=== PATIENT | female | born 1995 | race Caucasian/White ===

== ENCOUNTER 2024-11-21 08:00 | Emergency (ER) | payer BC, SELFPAY ==
--- OUTSIDE RECORDS SUMMARY | 2024-11-21 08:04 | XMS_ITS ---
Author Organization Unknown Address [address] [place] [phone] Phone Care Team Providers Care Customer Advisor Specialist Name Role Phone MARY GOLD Attending Unavailable NO PCP Primary Unavailable Immunization Immunization Date Status Additional Notes Code Code System OPV 06/30/1998 Completed 02 CVX MMR 06/30/1998 Completed 03 CVX MMR 04/03/2002 Completed 03 CVX IPV 1997 Completed 10 CVX IPV 1997 Completed 10 CVX IPV 04/03/2002 Completed 10 CVX influenza, split (incl. purified surface antigen) 05/26/2009 Completed 15 CV X DTaP 1997 Completed 20 CVX DTaP 1997 Completed 20 CVX DTaP 1997 Completed 20 CVX DTaP 06/30/1998 Completed 20 CVX DTaP 04/03/2002 Completed 20 CVX varicella 04/03/2002 Completed 21 CVX varicella 02/16/2012 Completed 21 CVX Hib-Hep B 1997 Completed 51 CVX Hib-Hep B 1997 Completed 51 CVX Hib-Hep B 06/30/1998 Completed 51 CVX Hep A, ped/adol, 2 dose 02/16/2012 Completed 83 CVX Hep A, ped/adol, 2 dose 01/01/2015 Completed 83 CVX meningococcal MCV4P 01/01/2015 Completed 114 CVX Tdap 02/16/2012 Completed 115 CVX meningococcal, unknown serogroups 02/16/2012 Completed 167 CVX Results BETA HCG-QUANT - Collect Trey e/Time: 02/15/2024 23:18 [facility] ID: [id number] [address] [place], [place], [phone] LOINC: Test Value Unit Reference Range Code Code System Flag BETA HCG-QUANT 7816.50 mIU/mL L=0.00 H=6.00 LOINC H CBC W/ DIFF - Collect Date/T piotr: 02/15/2024 23:18 [facility] ID: [id number] [address] [place], [place], [phone] LOINC: 52944-3 Test Value Unit Reference Range Code Code System Flag WBC 8.6 10^3uL L=4.8 H=10.8 RBC 3.59 10^6uL L=4.20 H=5.40 L HEMOGLOBIN 11.2 g/dL L=12.0 H=16.0 718-7 LOINC L HEMATOCRIT 33.4 VOL% L=37.0 H=47.0 4544-3 LOINC L MCV 93.0 fL L=81.0 H=99.0 MCH 31.2 pg L=27.0 H=32.0 MCHC 33.5 g/dL L=32.0 H=36.0 PLATELETS 218 10^3uL L=100 H=400 94344-8 LOINC RDW 12.9 % L=11.7 H=15.5 %GRAN 61.8 % L=40.0 H=70.0 72698-8 LOINC %LYMPH 27.2 % L=20.0 H=45.0 736-9 LOINC %MONO 9.9 % L=2.0 H=10.0 66782-1 LOINC %EOS 0.5 % L=0.0 H=6.0 713-8 LOINC %BASO 0.3 % L=0.0 H=3.0 706-2 LOINC #NEUT 5.3 10^3uL L=1.9 H=7.6 79642-2 LOINC #LYMPH 2.3 10^3uL L=0.9 H=4.9 05074-1 LOINC #MONO 0.9 10^3uL L=0.1 H=0.9 52225-5 LOINC #EOS 0.0 10^3uL L=0.0 H=0.6 712-0 LOINC #BASO 0.03 10^3uL L=0.00 H=0.10 03997-1 LOINC #IM GRANS 0.0 10^3uL L=0.0 H=7.0 04349-0 LOINC %IM GRANS 0.3 % L=0.0 H=5.0 18856-8 LOINC %NRB 0.0 L=0.0 H=0.2 40218-7 LOINC #NRB 0.000 L=0.000 H=0.012 61024-1 LOINC MANUAL DIFF NOT INDICATED RBC MORPH NOT INDICATED COMPREHENSIVE METABOLIC PANE L - Collect Date/Time: 02/15/2024 23:18 [facility] ID: [id number] [address] [place], [place], [phone] LOINC: 31940-2 Test Value Unit Reference Range Code Code System Flag FASTING UNKNOWN BUN 13 mg/dL L=7 H=20 3094-0 LOINC CREATININE 0.70 mg/dL L=0.52 H=1.04 2160-0 LOINC GLUCOSE 72 mg/dL L=74 H=106 2345-7 LOINC L SODIUM 135 mmol/L L=132 H=144 2951-2 LOINC POTASSIUM 3.1 mmol/L L=3.5 H=5.1 2823-3 LOINC L CHLORIDE 101 mmol/L L=98 H=107 2075-0 LOINC CO2 27.0 mmol/L L=22.0 H=30.0 2028-9 LOINC ANION GAP 10 L=10 H=20 01285-5 LOINC OSMOLALITY 279 mOs/kG L=280 H=296 40817-6 LOINC L BUN/CREAT 18.6 3097-3 LOINC CALCIUM 9.3 mg/dL L=8.3 H=10.5 85349-2 LOINC AST 26 U/L L=15 H=46 1920-8 LOINC ALT 17 U/L L=9 H=72 1742-6 LOINC ALKALINE PHOS 47 U/L L=38 H=126 6768-6 LOINC TOTAL BILI 0.2 mg/dL L=0.2 H=1.3 1974-2 LOINC ALBUMIN 4.0 G/dL L=3.5 H=5.0 1751-7 LOINC TOTAL PROTEIN 7.1 g/L L=6.3 H=8.2 2885-2 LOINC A/G RATIO 1.3 90544-8 LOINC AGE 28 17510-1 LOINC eGFR NON-AFR 108 ml/min eGFR AFR AMER 131 ml/min LIPASE - Collect Date/Time: 02/15/2024 23:18 [facility] ID: [id number] [address] [place] [address], [phone] LOINC: 3040-3 Test Value Unit Reference Range Code Code System Flag LIPASE 256 U/L L=23 H=300 3040-3 LOINC PROTIME - Collect Date/Time: 02/15/2024 23:18 [facility] ID: [id number] [address] [place] [address], [id number] LOINC: 31367-6 Test Value Unit Reference Range Code Code System Flag PT 9.9 Sec L=9.7 H=11.7 60046-2 LOINC INR 0.9 Sec L=0.9 H=1.1 74655-0 LOINC PTT - Collect Date/Time: 23:18 [facility] ID: [id number] [address] [place] [address], [id number] LOINC: 83316-3 Test Value Unit Reference Range Code Code System Flag PTT 24.4 Sec L=23.0 H=31.2 URINALYSIS w/Microscopy/C&S if indicated - Collect Date/Time: 02/15/2024 23:18 [facility] ID: [id number] [address] [place] [address], [phone] LOINC: 75354-8 Test Value Unit Reference Range Code Code System Flag UR SOURCE CLEAN CATCH 21596-5 LOINC COLOR STRAW YELLOW 5778-6 LOINC CLARITY CLEAR CLEAR 90771-1 LOINC SPEC GRAVITY <=1.005 1.000-1.030 5811-5 LOINC PH 7.0 5.0 - 6.5 5803-2 LOINC LEUK EST NEGATIVE NEGATIVE 5799-2 LOINC NITRATE NEGATIVE NEGATIVE PROTEIN NEGATIVE NEGATIVE 5804-0 LOINC GLUCOSE NEGATIVE NEGATIVE 65682-4 LOINC KETONES NEGATIVE NEGATIVE 52554-2 LOINC UROBILINOGEN 0.2EU/dL NEGATIVE 5818-0 LOINC BILIRUBIN NEGATIVE NEGATIVE 11017-7 LOINC BLOOD NEGATIVE NEGATIVE 63582-6 LOINC WBC 0-2 0 - 2 29874-8 LOINC RBC 0-2 0 - 2 89272-0 LOINC EPITHELIAL OCCASIONA RARE-FEW 42051-6 LOINC BACTERIA FEW NONE SEEN 71151-5 LOINC MUCUS FEW NONE SEEN 8247-9 LOINC YEAST NOT PRESENT NOT PRESENT 02561-9 LOINC CASTS NONE SEEN 36475-3 LOINC CRYSTALS NONE SEEN 35595-8 LOINC CULTURE? NO 8251-1 LOINC DIAGNOSIS N/A US OB LIMITED - Completed: 0 02/16/2024 04:08 LOINC: EXAM DESCRIPTION: US OB LIMITED REASON FOR STUDY: PT STATES SHE STARTED EXPERIENCING RT SIDED CRAMPING TODAY. A1. EDC=06/11/24 Duration: X 1 TECHNIQUE: Transabdominal and transvaginal images acquired of the pelvis. COMPARISON: None FINDINGS: There is single live intrauterine gestation noted in breech presentation with documentation of cardiac activity at 144 beats per minute. There is an anterior placenta, grade 1, without evidence of previa. The cervix measures 3.9 cm in length transvaginally. IMPRESSION: 1. Single live intrauterine gestation in breech presentation with documentation of cardiac activity at 144 beats per minute. Routine follow-up anatomy scan is recommended as clinically indicated. THIS IS AN ELECTRONICALLY VERIFIED FINAL REPORT 02/16/2024 9:01 AM - Electronically signed by Rama Espino D.O. PS: RUDDY Report ID: [id number] Reading Location: [id number] Social History Type Status Start Date End Date Code Code Syst em Sex Female Hospital Discharge Instructions Should you have any questions prior to discharge, please contact a member of your healthcare team. If you have left the hospital and have any questions, please contact your primary care physician. Reason For Referral No Data Found Plan of Treatment No Data Found Encounters Encounter Diagnosis Start Date Code Code Sys tem Endocrine, nutritional and m etabolic diseases complicating , second trimester 02/15/2024 SNOMED-CT Personal Care Team Section Performer Name Performer Role Active Date Inactive Da te Imaging Narrative Notes
[2024-11-21 08:05] VITALS: BP 132/83; PULSE 104; RESP 18; TEMP 37.3; O2SAT 98
--- OUTSIDE RECORDS SUMMARY | 2024-11-21 08:05 | XMS_ITS | Encounter Summary ---
Author Organization [facility] Address [address] [place] [address] Care Team Providers Care Wireless Network Engineer Name Role Phone Jatin Chavez MD Primary Care Provider [phone] Mariano Prakash MD Primary Care Provider [phone] Brianne Buckner MD Primary Care Provider [phone] Bisi Abad MD Primary Care Provider [phone] Encounter Details Date Type Department Care Team (Late st Contact Info) Description 01/05/2019 Abstract SFL CONVERSION [address] [place] [address] , Generic ConversionMD Social History Tobacco Use Types Packs/Day Years Used Date Smoking Tobacco: Never Assessed Comments Unknown Sex and Gender Information Value Date Recorded Sex Assigned at Female 10/12/2024 9:03 AM CDT Legal Sex Female 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 PM SILO TENDER Gender Identity Not on file Sexual Orientation Not on file documented as of this encounter Plan of Treatment Not on file documented as of this encounter Visit Diagnoses Not on filedocumented in this encounter Additional Health Concerns Infection Onset Date Last Indicated Resolved Time COVID-19 Rule Out 04/09/2021 04/09/2021 04/09/2021 10:01 PM CDT documented as of this encounter Care Teams Wireless Network Engineer Relationship Specialty Start Date End Date Jatin Chavez MD [address] [place] [id number] PCP - General FAMILY PRACTICE 03/20/19 09/04/20 Mariano Prakash MD [address] [place] [address] PCP - General FAMILY PRACTICE 09/05/20 10/19/23 Brianne Buckner MD [address] [place] [address] PCP - General FAMILY PRACTICE 10/20/23 05/26/24 Bisi Abad MD [address] [place] [address] PCP - General FAMILY PRACTICE 05/27/24 documented as of this encounter
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
--- OUTSIDE RECORDS SUMMARY | 2024-11-21 08:05 | XMS_ITS ---
Author Organization Unknown Address [address] [place] [phone] Phone Care Team Providers Care Cafeteria Cashier Name Role Phone CARMEN Sumner Attending Unavailable Immunization Immunization Date Status Additional Notes [...] unknown serogroups 02/16/2012 Completed 167 CVX Results US OB LIMITED - Completed: 0 01/22/2024 13:05 LOINC: EXAM DESCRIPTION: US OB LIMITED; US TRANSVAGINAL OB REASON FOR STUDY: Patient fell down 5 stairs yesterday. Mild cramping for 1 day. TECHNIQUE: Multiple static transabdominal and transvaginal images of the pelvis were submitted for review. COMPARISON: None FINDINGS: Gestational age estimated by this US: 20 weeks 1 day EDC estimated by this US: 06/09/2024 EFW estimated by this US: 329 g EFW is at the 57% based upon the provided EDC or prior US if available. Placenta is located: Anterior, grade 0. The placental tip measures 3.0 cm from the cervical os. position: Cephalic heart rate: 155 The cervix measures 4.6 cm in length transvaginally. MEASUREMENTS: The measurements and ratios are within normal limits. IMPRESSION: 1. Single live intrauterine gestation identified with gestational age by this ultrasound of 20 weeks 1 day and EDC by this ultrasound is 06/09/2024. Routine follow-up anatomy scan is recommended as clinically indicated. 2. Low lying placenta with placental tip measuring 3.0 cm from the cervical os. Continued attention on the aforementioned follow-up anatomy scan is recommended as clinically indicated. THIS IS AN ELECTRONICALLY VERIFIED FINAL REPORT 01/22/2024 1:14 PM - Electronically signed by Rama Espino D.O. PS: PS Report ID: [id number] Reading Location: [id number] US TRANSVAGINAL OB - Complet ed: 01/22/2024 13:05 LOINC: EXAM DESCRIPTION: US OB LIMITED; US TRANSVAGINAL OB REASON FOR STUDY: Patient fell down 5 stairs yesterday. Mild cramping for 1 day. TECHNIQUE: Multiple static transabdominal and transvaginal images of the pelvis were submitted for review. COMPARISON: None FINDINGS: Gestational age estimated by this US: 20 weeks 1 day EDC estimated by this US: 06/09/2024 EFW estimated by this US: 329 g EFW is at the 57% based upon the provided EDC or prior US if available. Placenta is located: Anterior, grade 0. The placental tip measures 3.0 cm from the cervical os. position: Cephalic heart rate: 155 The cervix measures 4.6 cm in length transvaginally. MEASUREMENTS: The measurements and ratios are within normal limits. IMPRESSION: 1. Single live intrauterine gestation identified with gestational age by this ultrasound of 20 weeks 1 day and EDC by this ultrasound is 06/09/2024. Routine follow-up anatomy scan is recommended as clinically indicated. 2. Low lying placenta with placental tip measuring 3.0 cm from the cervical os. Continued attention on the aforementioned follow-up anatomy scan is recommended as clinically indicated. THIS IS AN ELECTRONICALLY VERIFIED FINAL REPORT 01/22/2024 1:14 PM - Electronically signed by Rama Espino D.O. PS: PS Report ID: [id number] Reading Location: [id number] Social History Type Status Start Date End [...] Diagnosis Start Date Code Code Sys tem Sprain of ligaments of lumbar spine, initial encounter 01/22/2024 SNOMED-CT Personal Care Team Section Performer Name Performer Role Active Date Inactive Da te Imaging Narrative Notes
--- OUTSIDE RECORDS SUMMARY | 2024-11-21 08:05 | XMS_ITS ---
Author Organization Unknown Address [address] [place] [phone] Phone Care Team Providers Care Assistant Child Care Teacher Name Role Phone SOCORRO RANDOLPH Attending Unavailable NO PCP Primary Unavailable Immunization [...] unknown serogroups 02/16/2012 Completed 167 CVX Results 1 HR GESTATIONAL GLUCOSE SCR EEN - Collect Date/Time: 03/17/2024 09:43 [facility] ID: [id number] [address] [place], [place], [id number] LOINC: 21731-0 Test Value Unit Reference Range Code Code System Flag 1 HR GLUCOSE 113.00 mg/dL L=70.00 H=140 95648-1 [facility] Social History Type Status Start Date End [...] Diagnosis Start Date Code Code Sys tem Encounter for supervision of normal , unspecified, unspecified trimester 03/17/2024 NASIR D-CT Personal Care Team Section Performer Name Performer Role Active Date Inactive Da te
[2024-11-21 08:20] LABS: Add Urine Microscopic? NO; Appearance Urine Clear (Clear); Bilirubin Urine Negative (Negative); Blood Urine Negative (Negative); Color Urine Yellow (Yellow); Glucose Urine UA Negative (Negative); Ketones Urine Negative (Negative); Leukocyte Esterase Ur Negative LEU/UL (Negative); Nitrate Urine Negative (Negative); Protein Urine Negative (Negative); Urobilinogen Urine 0.2 mg/dL (0.2-1.0); pH Urine 6.5 (5.0-8.0)
[2024-11-21 08:29] LABS: Pregnancy On Board Control Positive; Urine Pregnancy Test Negative
--- OUTSIDE RECORDS SUMMARY | 2024-11-21 08:39 | XMS_ITS | Encounter Summary ---
Author Organization [facility] Address [address] [place] [address] Care Team Providers Care Hoist Worker Name Role Phone Jatin Chavez MD Primary Care Provider [phone] Mariano Prakash MD Primary Care Provider [phone] Brianne Buckner MD Primary Care Provider [phone] Bisi Abad MD Primary Care Provider [phone] Encounter Details Date Type Department Care Team (Late st Contact Info) Description 01/05/2019 Abstract SFL CONVERSION [address] [place] [address] , Generic ConversionMD Social History Tobacco Use Types Packs/Day Years Used Date Smoking Tobacco: Never Assessed Comments Unknown Sex and Gender Information Value Date Recorded Sex Assigned at Female 10/12/2024 9:03 AM CDT 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 Gender Identity Not on file Sexual Orientation Not on file documented as of this encounter Plan of Treatment Not on file documented as of this encounter Visit Diagnoses Not on filedocumented in this encounter Additional Health Concerns Infection Onset Date Last Indicated Resolved Time COVID-19 Rule Out 04/09/2021 04/09/2021 04/09/2021 10:01 PM CDT documented as of this encounter Care Teams Hoist Worker Relationship Specialty Start Date End Date Jatin Chavez MD [address] [place] [address] [place] [phone] PCP - General FAMILY PRACTICE 03/20/19 09/04/20 Mariano Prakash MD [address] [place] [phone] PCP - General FAMILY PRACTICE 09/05/20 10/19/23 Brianne Buckner MD [address] [place] [address] PCP - General FAMILY PRACTICE 10/20/23 05/26/24 Bisi Abad MD [address] [place] [address] PCP - General FAMILY PRACTICE 05/27/24 documented as of this encounter
--- OUTSIDE RECORDS SUMMARY | 2024-11-21 08:39 | XMS_ITS | Clinical Summary ---
Author Organization [facility] Address [facility] [place] [address] Care Team Providers Care Calciminer Name Role Phone Bisi Abad MD Primary Care Provider [phone] Allergies Active Allergy Reactions Criticality Noted Date [...] Date Diagnosed Date Premature rupture of membranes ([facility]) 024 Hypokalemia 03/24/2019 Hypoxemia 03/24/2019 Respiratory failure with hypoxia ([facility] C) 03/24/2019 ARDS (adult respiratory dist ress syndrome) ([facility]) 03/24/2019 Depression 03/23/2019 Anxiety 03/23/2019 Pneumonia 03/22/2019 Resolved Problems Problem Noted Date Diagnosed Date Resolved Date Vomiting 03/23/2019 03/24/2019 Encounters Date Type Department Care Team Description 10/12/2024 8:42 AM CDT - 10/12/2024 9:15 AM CDT Emergency [facility] [address] [place] [address] David Da Silva MD Eye Drainage Discharge [...] from your doctor or pharmacy? Never 05/23/2024 [facility] Utilities Answer Date Recorded In the past 12 months has e [employer], gas, oil, or water [employer] threatened to shut off services in your [...] often do you attend chur ch or jewish services? Never 05/23/2024 Do you belong to any clubs o r organizations such as restoration groups, unions, fraternal or athletic groups, or [...] medical care, and heating? Somewhat hard 05/23/2024 [facility] - Occupational [...] any time in the past 12 m [facility], were you homeless or living in a fdc (including now)? No 05/23/2024 Depression Answer Date Recor ded Last EPDS Total Score 13 05/26/2024 Last EPDS Self Harm Result Unrecognized value Comments No Sex and Gender Information Value Date Recorded Sex Assigned at Female 10/12/2024 9:03 AM CDT Legal Sex Female 10:24 PM [employer] Gender Identity Not on file Sexual Orientation [...] 11:21 PM 03/24/2019 2:34 PM Care Teams Calciminer Relationship Specialty Start Date End Date Bisi Abad MD [address] [id number] PCP - General FAMILY PRACTICE 05/27/24
--- OUTSIDE RECORDS SUMMARY | 2024-11-21 08:39 | XMS_ITS | Data Portability ---
Author Organization [facility], [address] [facility] ([place]) Address [address] [address] Care Team Providers Care Revenue Accounting Manager Name Role Phone DALJIT ABAD Primary Care Provider Unavailabl e Assessment Encounter Date Assessment Date Assessment LastModified by Organization Details LastModified Time 10/14/2024 10/14/2024 Likely viral URI. She is on about day 7. Overall improving. Recommended continued watchful waiting/ supportive treatment. If not improving further by the end of the week, would consider Amox for sinusitis. Patient voices understanding and agreement with the plan. [email or web address] Not available 10/14/2024 17:50:29 11/06/2024 11/06/2024 Likely a viral URI. We discussed viral testing today and she declines for now given mild symptoms, which I feel is reasonable. Recommended supportive treatment adding an OTC allergy medication. F/u if worsening symptoms or failure to improve/symptoms lasting > 7-10 days [email or web address] Not available 11/06/2024 13:02:59 Plan of Treatment Reminders Order Date Submit Date Provider Last Modified By Organization Details Last Modified Time Details Appointments None recorded. Lab CBC 2024 025 [facility], [address], [address], 14:49:25 Referral None recorded. Procedures None recorded. Surgeries None recorded. Imaging None recorded. Medication Orders venlafaxine ER 37.5 mg capsule,ext ended release 24 hr 2024 025 [facility], [employer] [facility] [address], [place], [address], 5 15:09:07 venlafaxine ER 75 mg capsule,ext ended release 24 hr 2024 025 PEDRO [facility], [address], [place], [address], 5 15:09:07 venlafaxine ER 37.5 mg capsule,ext ended release 24 hr 2024 025 PEDRO [facility], [address], [place], [place], [id number], 5 15:31:30 venlafaxine ER 75 mg capsule,ext ended release 24 hr 2024 025 PEDRO [facility], [address], [place], [place], [id number], 5 15:31:29 nicotine 14 mg/24 hr daily transdermal patch 2024 025 PEDRO [facility], [address], [place], [place], [id number], 5 15:15:06 nicotine 7 mg/24 hr daily transdermal patch 2024 025 [email or web address] [facility], [address], [place], [place], [id number], 5 14:35:17 venlafaxine ER 75 mg capsule,ext ended release 24 hr 2024 025 PEDRO [facility], [address] [id number], 5 13:10:09 Patient TargetsNo targets recorded. Patient Instructions Encounter Date Encounter Id Patient Instructions Last Modified By Organization Details Last Modified Time 08/12/2024 [id number] Follow-up as scheduled in 2-3 weeks, PRN in interim [email or web address] Not available 08/12/2024 17:54:34 09/11/2024 [id number] Venlafaxine increased today. Start Nicotine patches for smoking cessation. Return in one month for recheck. Patient reports agreement and understanding with this plan. [email or web address] Not available 09/12/2024 00:26:20 10/09/2024 [id number] Would like to se e her back in another month - wherein hopefully psychiatry will be on board. Patient reports agreement and understanding with this plan. [email or web address] Not available 10/09/2024 15:18:55 Reason for Referral None Reported. Results Created Date Observation Date Name Description Value Unit Range Abnormal Flag Note LastModifiedBy Organization Detail LastModifiedTime 08/12/1908/13/2024 CBC CBC Not Available [facility] [address] [place] [address], [address], 08/13/2024 14:49:25 08/12/1908/13/2024 CBC WBC 5.2 K/uL 3.8-11 .2 Not Available [facility] [address] [place] [address], [address], 08/13/2024 14:49:25 08/12/1908/13/2024 CBC RBC 4.48 M/uL 3.92-5 .10 Not Available [facility] [address] [place] [address], [id number], 08/13/2024 14:49:25 08/12/1908/13/2024 CBC HGB 13.1 g/dL 11.8-1 5.3 Not Available [facility] [address] [place] [address], [address], 08/13/2024 14:49:25 08/12/1908/13/2024 CBC HCT 39.9 % 36.5-4 4.8 Not Available [facility] [address] [place] [address], [address], 08/13/2024 14:49:25 08/12/1924 0808/13/2024 CBC MCV 89.1 fL 80.0-9 9.0 Not Available [facility] [address] [place] [address], [address], 08/13/2024 14:49:25 08/12/19 25 08/13/2024 CBC MCH 29.2 pg 25.5-3 3.6 Not Available [facility] [address] [place] [address], [address], 08/13/2024 14:49:25 08/12/19 25 08/13/2024 CBC MCHC 32.8 g/dL 32.0-3 6.0 Not Available [facility] [address] [place] [address], [address], 08/13/2024 14:49:25 08/12/19 25 08/13/2024 CBC RDW-SD 43.5 fL 35.1 - 46.3 Not Available [facility] [address] [place] [address], [address], 08/13/2024 14:49:25 08/12/19 25 08/13/2024 CBC plt 370 K/uL 130-40 0 Not Available [facility] [address] [place] [address], [address], 08/13/2024 14:49:25 08/12/1908/13/2024 CBC MPV 9.6 fL 9.3-12 .8 Not Available [facility] [address] [place] [address], [address], 08/13/2024 14:49:25 Result Notes None recorded. Problems Name Problem SNOMED Code Status Onset Date Resolution Date Notes Provider Name and Address Organization Details Recorded Time Group B Streptoc occus carrier [id number] [id number] Completed +screen at 36w. Plan for intrapar christo antibiot ics. Ammon Emery MD [address] [place] [address], [id number] [place] [address] 4 07:35:25 Moderate major depressi on, single episode 31885146 Active Currentl y on Fluvoxam ine, buspar, and venlafax ine. Buspar decrease d to BID from TID due to possible dizzines s- venlafax ine started 07/2024. Has had some off/on c/o visual/a uditory hallucin ations. at appt 11/06/24 pt reports improvem ent. NO further visual barriga. Auditory occasion ally but never with any intrusiv e thoughts . No suggesti ons of harming herself or others. Working on therapy referral w/ Marisela Moreira. Previous ly trialed: venlafax , clonidin e (stopped due to muscle cramps), clonazep am, trazodon e, buspar, wellbutr in, mirtaz, sertrali ne, seroquel (stopped due to faitgue with new baby) and risperid one. Also tried Abilify which made mood worse. Anisa Willis, THEATER PROJECTIONIST [address] [place] [address], [address], [facility] 5 13:07:51 Anxiety 80667765 Active 2023 See depressi on DALJIT ABAD MD [address] [place] [address], [address], [facility] 5 17:57:33 Abnormal vaginal Papanico laou smear 284030804 Active 2023 ASCUS unknown HPV 01/25/23, prior to that NILM, due for repeat pap 12/2023 DALJIT ABAD MD [address] [place], [address], [facility] 4 09:02:15 Acute respirat ory distress syndrome 13556988 Completed 202007/31/2020 vape induced lung injury, required ventilat or support DALJIT ABAD MD [address] [place], [address], [facility] 4 09:04:11 Dizzines s 111513388 Active 2024 DALJIT ABAD MD [address] [place] [address], [address], [facility] 5 13:09:05 Viral upper respirat ory tract infectio n 935418138 Active 2024 Anisa Willis, THEATER PROJECTIONIST [address] [place] [address], [address], [facility] 5 12:17:40 Marijuan a user 677133464 Completed every other day Ammon Emery MD [address] [place] [address], [address], [facility] 4 11:03:52 Blood group A 909217204 Completed prior provider flowshee t not clear on Rh Status. A+ confirme d on 32wk labs. Ammon Emery MD [address] [place] [address], [address], [facility] 4 09:58:20 Normal pregnanc y 03366308 Completed 08/12/2024 DALJIT ABAD MD [address] [place] [address], [address], [facility] 5 17:57:08 Depressi ve disorder 66659776 Completed Controll ed w/ Fluvoxam ine and Seroquel coming into (and continue d in) pregnanc y Ammon Emery MD [address] [place] [address], [address], [facility] 4 11:03:52 Abnormal ity of heart 061710834 Completed 2023 Appearan ce of bidirect ional flow in aorta on tracheal view. Normal on MFM eval at 33w where advised ok to deliver locally ( cis), but suggeste d post-silas al echo non-urge ntly. Ammon Emery MD [address] [place] [address], [address], [facility] 10:50:38 Notes:Some problems listed i n Document: #[id number] could not be added to this patient's chart. Please review this document and add these problems to the patient's chart manually as needed. Problem Notes None recorded. Procedures Surgical History Date Name Laterality Status Provider Name and Address Organization Details Recorded Time 10/27/2022 Date of Last Pap Smear completed Not Available Health Note 04/17/2024 14:02:31 Imaging Results None recorded. Procedure Notes None recorded. Medical Equipment None Reported. Allergies Allergen ID Allergen Name Allergen Category Reaction Reaction Severity Criticality Documentation Date Start Date Code Code System Note Provider Name and Address Organization Details Recorded Time 8994072 erythromy chioma medicatio n vomiting Not available Not available 01/26/2024 4053 RxNorm and sever e body pain Not Available Not Available Not Available 2662394 lavender extract food rash Not available Not available 01/26/2024 53308 67 RxNorm and tight throa t Not Available Not Available Not Available Medications Name Sig Start Date Stop Date Status Note LastModified by Organization Details LastModified Time venlafaxi ne ER 37.5 mg capsule,e xtended release 24 hr TAKE 1 CAPSULE DAILY ALONG WITH 75 MG CAPSULE TO EQUAL 112.5 MG DAILY 2024 active Not Available Not Available Not Avai lable venlafaxi ne ER 75 mg capsule,e xtended release 24 hr TAKE 1 CAPSULE DAILY ALONG WITH 37.5 MG CAPSULE TO EQUAL 112.5 MG DAILY. 2024 active Not Available Not Available Not Avai lable nicotine 14 mg/24 hr daily transderm al patch Apply 1 patch every day by transder mal route for 7 days. 2024 active Not Available Not Available Not Avai lable quetiapin e 300 mg tablet Take 1 tablet every day by oral route at bedtime. 06/03 completed Deferred 06/03/24 to lower dose Not Available Not Available Not Available quetiapin e 200 mg tablet TAKE 1 TABLET BY MOUTH AT BEDTIME 03/11 completed dose clarific ation Not Available Not Available Not Available nifedipin e 10 mg capsule TAKE 1 CAPSULE BY MOUTH TWICE DAILY NEEDED FOR CONTRACT ION PAIN BEFORE 37 WEEKS 06/10 completed Not Available Not Available Not Available fluvoxami ne 100 mg tablet TAKE 1 TABLET BY MOUTH TWICE DAILY 01/25 completed Not Available Not Available Not Available misoprost ol 200 mcg tablet TAKE FOUR TABLETS BY MOUTH A ONE TIME DOSE 01/25 completed Not Available Not Available Not Available monteluka st 10 mg tablet TAKE 1 TABLET BY MOUTH ONCE DAILY 01/25 completed Not Available Not Available Not Available ondansetr on 4 mg disintegr ating tablet DISSOLVE 1 TABLET IN MOUTH EVERY 8 HOURS NEEDED FOR NAUSEA 01/25 completed Not Available Not Available Not Available nicotine 7 mg/24 hr daily transderm al patch Apply 1 patch every day by transder mal route. 10/09 completed Not Available Not Available Not Available buspirone 15 mg tablet Take 1 tablet 3 times a day by oral route. 2024 active Changed to BID on 08/12/24 due to possible dizzines s Not Available Not Available Not Available quetiapin e 50 mg tablet TAKE 1 TABLET BY MOUTH TWICE DAILY 08/02 completed Not Available Not Available Not Available fluvoxami ne ER 150 mg capsule,e xtended release 24 hr TAKE ONE CAPSULE BY MOUTH DAILY AT BEDTIME active Not Available Not Available No t Available Vitamins Plus Low Iron 27 mg iron-1 mg tablet TAKE 1 TABLET BY MOUTH ONCE DAILY active Not Available Not Available No t Available BinaxNOW COVID-19 Ag Self Test kit TEST DIRECTED TODAY 08/02 completed Not Available Not Available Not Available Vitals Date Recorded Body weight Body temperature Heart rate Oxygen saturation Oxygen saturation in Arterial blood by Pulse oximetry Systolic blood pressure Diastolic blood pressure Provider Name and Address Organization Details Last Updated DateTime 5 23795.5 3 g 97 [degF] 81 /min 98 % 98 % 114 mm[Hg] 82 mm[Hg] [facility] 5 12:09:28 Date Recorded Body weight Body temperature Heart rate Oxygen saturation Oxygen saturation in Arterial blood by Pulse oximetry Systolic blood pressure Diastolic blood pressure Provider Name and Address Organization Details Last Updated DateTime 5 26257.7 5 g 96.6 [degF] 81 /min 96 % 96 % 102 mm[Hg] 74 mm[Hg] [facility] 5 14:44:38 Date Recorded Body weight Body temperature Heart rate Oxygen saturation Oxygen saturation in Arterial blood by Pulse oximetry Systolic blood pressure Diastolic blood pressure Provider Name and Address Organization Details Last Updated DateTime 5 78595.8 5 g 97.5 [degF] 115 /min 98 % 98 % 124 mm[Hg] 80 mm[Hg] Zeenat Becker [facility] 5 14:37:41 Date Recorded Body weight Body temperature Respiratory rate Heart rate Oxygen saturation Oxygen saturation in Arterial blood by Pulse oximetry Systolic blood pressure Diastolic blood pressure Provider Name and Address Organization Details Last Updated DateTime 5 88894.7 8 g 99.1 [degF] 16 /min 98 /min 99 % 99 % 120 mm[Hg] 78 mm[Hg] Deborah Baez [facility] 5 12:57:32 Date Recorded Body weight Body temperature Heart rate Oxygen saturation Oxygen saturation in Arterial blood by Pulse oximetry Systolic blood pressure Diastolic blood pressure Provider Name and Address Organization Details Last Updated DateTime 5 33216.3 2 g 97.6 [degF] 78 /min 98 % 98 % 108 mm[Hg] 60 mm[Hg] Heena Mansfield [facility] 5 11:47:05 Social History Question Answer Notes LastModified by Organizat ion Details LastModified Time Tobacco Smoking Status Never Smoker Not Available Health Note 04/17/2024 14:02:30 Do You Have An Advance Directive? No [email or web address] Information not available 04/17/2024 What Is Your Level Of Alcohol Consumption? None [email or web address] Information not available 04/17/2024 What Is Your Level Of Caffeine Consumption? None [email or web address] Information not available 04/17/2024 Are You Currently Employed? Yes [email or web address] Information not available 04/17/2024 What Is Your Occupation? [employer] [email or web address] Information not available 04/17/2024 How Many Times Per Week Do You Exercise? 3-4 Times Per Week [email or web address] Information not available 04/17/2024 Smokeless Tobacco? Former Smokeless Tobacco User [email or web address] Information not available 04/17/2024 When Did You Quit Smoking? 06/04/2015 [email or web address] Information not available 02/24/2024 Do You Have A Medical Power Of Rubber Tile Floor Layer? No [email or web address] Information not available 04/17/2024 What Was The Date Of Your Most Recent Tobacco Screening? 04/17/2024 [email or web address] Information not available 04/17/2024 What Is Your Relationship Status? Single [email or web address] Information not available 04/17/2024 Do You Use Any Illicit Or Recreational Drugs? No [email or web address] Information not available 04/17/2024 Sex: Unknown Functional Status Question Answer Note LastModified by Organization D etails LastModified Time What is your exercise level? Moderate [email or web address] Information not available 04/17/2024 Mental Status None recorded. Family History Relationship Description Onset Age of this Age Resolved Age Notes LastModified by Organization Details LastModified Time Mother Diabetes mellitus [email or web address] Not available 2023 10:23:37 Mother Hypertensive disorder [email or web address] Not available 2023 12:01:54 Father Atrial fibrillation [email or web address] Not available 10:23:50 Father Hypertensive disorder [email or web address] Not available 2023 12:01:54 Maternal Grandfather Asthma [email or web address] Not available 2023 12:01:54 Maternal Grandfather Family history of malignant neoplasm [email or web address] Not available 2023 12:01:54 Maternal Grandmother Asthma [email or web address] Not available 2023 12:01:54 Maternal Grandmother Family history of malignant neoplasm [email or web address] Not available 2023 12:01:54 Paternal Grandfather Family history of malignant neoplasm [email or web address] Not available 2023 12:01:54 Notes:Father has high blood pressure Father has a-fib Medical History Condition Response Anxiety Disorder Y Diabetes N Bleeding Disorder N Attention-deficit Hyperactivity Disorder N High Blood Pressure N Arthritis N Hyperlipidemia N Cancer N Thyroid Problems N Stroke N COPD N Depression Y Asthma Y Seizures N Anemia Y Heart Disease N Fibromyalgia N Osteoporosis N Kidney Disease N Gynecological History Statement/Question Response Abnormal Pap Y Date of Last Pap Smear 10/27/2022 Age at Menarche 19 Current Control Method Obstetrics History GPAL:G 2 P 1 0 1 1 Type Value Full Term 1 Spontaneous 1 Living 1 Total 2 Immunizations Vaccine Type Date Status Note Provider Nam e and Address Organization Details Recorded Time Tdap 4 completed Heena Tobinake null, [facility] 06/21/2024 15:50:41 Influenza, split virus, trivalent, PF 4 completed Heena Mahadake null, [facility] 06/21/2024 15:50:41 Hib-Hep B 8 completed Heena Schaake null, [facility] 01/26/2024 10:20:28 Hib-Hep B 8 completed Heena Schaake null, [facility] 01/26/2024 10:20:28 Hib-Hep B 8 completed Heena Mahadake null, [facility] 01/26/2024 10:20:28 [facility] 8 [facility] 10:20:29 IPV 8 completed [facility] 01/26/2024 10:20:29 IPV 2 completed [facility] 01/26/2024 10:20:29 meningococcal, unknown serogroups 2 completed [facility] 01/26/2024 10:20:29 MMR 2 completed [facility] 01/26/2024 10:20:29 MMR 8 completed Heena Schaake null, [facility] 01/26/2024 10:20:29 Tdap 2 completed [facility] 01/26/2024 10:20:29 varicella 2 completed Heena Schaake null, [facility] 01/26/2024 10:20:29 varicella 2 completed Heena Mahadake null, [facility] 01/26/2024 10:20:29 OPV 8 completed Heena Mahadake null, [facility] 01/26/2024 10:20:29 influenza, split (incl. purified surface antigen) 9 completed Heena Mansfield null, [facility] 01/26/2024 10:20:29 Hep A, ped/adol, 2 dose 5 [facility]26/[facility]24 10:20:29 Hep A, ped/adol, 2 dose 2 completed Heena Mansfield null, [facility] 01/26/2024 10:20:29 meningococcal MCV4P 5 completed Heena Mansfield null, [facility] 01/26/2024 10:20:29 DTaP 8 completed Heena Mansfield [facility], [facility] 01/26/2024 10:20:29 DTaP 8 completed Heena Mansfield [facility] 01/26/2024 10:20:29 DTaP 8 completed Heena Shyla null, [facility] 01/26/2024 10:20:29 DTaP 2 completed Heena Mansfield [facility], [facility] 01/26/2024 10:20:29 DTaP 8 completed Heenafredy Mansfield [facility] 01/26/2024 10:20:29 Past Encounters Encounter ID Performer Location Encounter Start Date Encounter Closed Date Diagnosis/Indication Diagnosis SNOMED-CT Code Diagnosis ICD10 Code Diagnosis Note [id number] Ammon Emery MD [facility]) [facility] [place] [address] 01/26/2024 10:03:36 01/26/2024 11:09:07 18850036 Z33.1 Normal 1014942 2 Z34.90 [id number] Ammon Emery MD [facility]) [facility] [place] [address] 02/26/2024 11:41:13 02/26/2024 12:35:33 Normal 09524313 Z34.90 [id number] Ammon Emery MD [facility] ([place]) [address] [place] [address] 03/29/2024 16:00:45 03/30/2024 06:10:45 Normal 74067334 Z34.90 [id number] Ammon Emery MD [facility] ([place]) [address] [place] [address] 04/17/2024 16:32:30 04/17/2024 17:16:10 Normal 77362586 Z34.90 [id number] Ammon Emery MD [facility] ([place]) [address] [place] [address] 04/29/2024 16:52:25 04/29/2024 17:14:22 Normal 03964096 Z34.90 [id number] Ammon Emery MD [facility] ([place]) [address] [place] [address] 05/13/2024 17:18:08 05/21/2024 17:44:01 Normal 21437409 Z34.90 [id number] Ammon Emery MD [facility] ([place]) [address] [place] [address] 05/16/2024 17:20:43 05/16/2024 17:58:21 Normal 53927108 Z34.90 [id number] Ammon Emery MD [facility] ([place]) [address] [place] [address] 05/20/2024 14:35:50 05/20/2024 15:13:36 Gestation period, 36 weeks 28497568 Z3A.36 Normal 1308920 2 Z34.90 [id number] DALJIT ABAD MD [facility] ([place]) [address] [place] [address] 06/10/2024 12:02:01 06/10/2024 13:39:43 Anxiety 04922944 F41.9 Having worsening anxiety- discussed supports in her life- reaching out to them for extra help. Will start buspar at this time as she feels fluvoxamin e has not done much for her anxiety. No concerns for harming self/baby/ pp psychosis. Discussed stressors of life and breastfeed ing- did encourage her to reach out if necessary- will have her follow up in 1 week to see how she is doing. Abnormal v aginal Papanicolaou smear 290716619 R87.629 Reports abnormal pap in 2022- given records request today to see what those results were. state 8225806 1 Z39.2 Doing well physically - discussed nothing vaginally until 6 week tanner. Following up 1 week from today, next check will be in 4 weeks. [id number] DALJIT ABAD MD [facility] ([place]) [address] [place] [address] 06/21/2024 15:44:39 06/25/2024 05:37:19 Anxiety 49809777 F41.9 Doing well with buspar, no side effects. Denies any SI/thought s of hurting baby. Anxiety has greatly improved. Will continue with current dosing- patient to make f/u appt in mid-Decemb er with baby for 8 week pp check. [id number] DALJIT ABAD MD [facility] ([place]) [address] [place] [address] 08/02/2024 14:55:27 08/05/2024 16:42:06 Anxiety 72555498 F41.9 Continuing to have anxiety, no red flag signs. Feels that it helps, but wears out. Will increase from 2x per day to 3x per day to see how it helps with anxiety. Patient agreeable to plan, will f/u in 1 month- due also for pap at that time. state 8173701 1 Z39.2 Doing well physically , having continued anxiety. Discussed contracept ion options- patient would like to defer at this time. Did discuss that she can get - discussed using condoms if she has intercours e to prevent . Abnormal v aginal Papanicolaou smear 622627450 R87.629 ASCUS unknown HPV 12/2022- due for repeat. Unable to do today as baby with her- will plan to do at next visit in 1 month [id number] DALJIT ABAD MD [facility] ([place]) [address] [place] [address] 08/12/2024 11:56:44 08/12/2024 13:23:01 Moderate major depression, single episode 85620588 F32.1 Discussed multiple options including increasing buspar again to see if it was just dizzines from menses, increasing her fluvoxamin e, or starting venlafaxin e. Patient would like to trial starting venlafaxin e. Would also be interested in counseling - previously saw someone at [facility] who she worked well with. Recommende d she reach out to them to see if they accept her insurance as she would be more comfortabl e with someone she knows. If not, will work to get her in with Leslie in our office. F/u in 2-3 weeks, call if any new side effects or thoughts of SI/HI. Pt verbalized understand ing of plan. Dizziness 597559354 R42 Was having dizziness- had medication change and return of menses all at same time, difficult to tell what cause was. Will check CBC to rule out anemia given coincidenc e with menses [id number] Ammon Emery MD [facility] ([place]) [address] [place] [address] 09/11/2024 14:36:19 09/11/2024 15:17:50 Substance abuse counseling 700590970 Z71.6 Instructio ns given on patches for smoking cessation. Moderate m ajor depression, single episode 75168248 F32.1 Currently on Fluvoxamin e, buspar, and venlafaxin e. Buspar decreased to BID from TID due to possible dizziness- venlafaxin e started 07/2024. Working on therapy referral. Previously trialed: venlafax, clonidine (stopped due to muscle cramps), clonazepam , trazodone, buspar, wellbutrin , mirtaz, sertraline , seroquel (stopped due to fatigue with new baby) and risperidon e -Increase dose of Venlafaxin e. She feels she is tolerating the Buspar now taking it just BID. Pt given phone number today to contact [facility] for counseling . [phone] Ammon Emery MD [facility]) [address] [place] [address] 10/09/2024 14:28:21 10/09/2024 15:06:47 Moderate major depression, single episode [id number] F32.1 Currently on Fluvoxamin e, buspar, and venlafaxin e. Buspar decreased to BID from TID due to possible dizziness- venlafaxin e started 07/2024. Working on therapy referral. Previously trialed: venlafax, clonidine (stopped due to muscle cramps), clonazepam , trazodone, buspar, wellbutrin , mirtaz, sertraline , seroquel (stopped due to fatigue with new baby) and risperidon e -Mood improved on the increased dose of venlafaxin e, however, still hearing the voices. She has not started any formal counseling yet, so I suggested we refer her to [facility], our telepysch service, for both counseling and medication suggestion s. She is agreeable and we will place order today. She also asked about FLMA, which I explained will have to come from her place of employment , but we can be completed by our office if she decides that is something she would like to do. [id number] Ammon Emery MD [facility]) [facility] [place] [address] 10/14/2024 12:47:08 10/14/2024 13:20:28 Viral upper respiratory tract infection [id number] J06.9 [id number] Ammon Emery MD [facility]) [address] [place] [address] 11/06/2024 11:28:12 11/06/2024 12:28:59 Viral upper respiratory tract infection [id number] J06.9 Moderate m ajor depression, single episode [id number] F32.1 Currently on Fluvoxamin e, buspar, and venlafaxin e. Buspar decreased to BID from TID due to possible dizziness- venlafaxin e started 07/2024. Has had some off/on c/o visual/aud itory hallucinat ions. at appt 11/06/24 pt reports improvemen t. NO further visual hallucinat ions. Auditory occasional ly, but never with any intrusive thoughts. No suggestion s of harming herself or others. Working on therapy referral w/ Marisela Delgado [facility] Concerns Section Related Observation LastModified by Organization Myke ponce LastModified Time None Recorded Concern Status LastModified by Organization Details LastModified Time None Recorded Advance Directives Directive N: Payers Encounter Date Sequence Insurance Name Policy Number Policy Marrero Covered Member ID Marrero Member ID Guarantor Name 08/12/2024 1 [facility] [facility] (MEDICAID REPLACEMENT - HMO) [id number] Richard A Alfredo [id number] Richard A Alfredo 09/11/2024 1 [place] [facility] (MEDICAID REPLACEMENT - [place]MO) [id number] Richard A Alfredo [id number] Richard A Alfredo 10/09/2024 1 [place] [facility] [facility] [place]MEDICAID REPLACEMENT - [place]MO) [id number] Richard A Alfredo [id number] Richard A Alfredo 10/14/2024 1 [place] [facility] [facility] [place]MEDICAID REPLACEMENT - [place]MO) [id number] Richard A Alfredo [id number] Richard A Alfredo 11/06/2024 1 [place] [facility] [place]ICAID REPLACEMENT - [place]MO) [id number] Richard A Alfredo [id number] Richard A Alfredo Notes Date Note Type Note Provider Name and Address Organization Details Recorded Time 08/12/2024 text/html #Anxiety/depress ion# Dizziness- last visit, increased buspar to 15mg TID for anxiety, states following this began to have dizziness- starte having bleeding around this time too- consistent with return of menses after having baby- unsure if dizziness improved after stepping down medication or after cessation of menses- not related to position changes- has improved but still feeling a little lightheaded/unsteady - states she has been on multiple medications in the past, did not feel seroquel helped at all- noticing that she is more impatient and frustrated- also very fixated on anxiety regarding SIDS- thinks venlafaxine was helpful to her in the past- denies thoughts of self harm or harm to others/baby- has done counseling in the past, found it to be helpful DALJIT ABAD MD [address] [place] [address], [phone], [facility] 08/13/2024 18:04:54 09/11/2024 text/html Anxiety/depressi on-S tarted venlafaxine last month-Counseling with [facility] - has not contacted them yet.-states she was having visual and auditory hallucinations - states, previously, after giving she heard people whispering as she was falling asleep - to clarify these hallucinations were not new after starting the venlafaxine. She was having them prior to starting it.-She denies SI/HI. She has no desire to harm her baby.-She continues to have anxiety and thoughts about her baby accidentally passing away and what it would look like for her to move on without him.-She does feel her anxiety has improved with medication but also feels depressed.-She has stress related to being a single mom-She is hoping for a different job soon - she is currently a track maintainer in a long term. She would like to work for a daycare where she can be around her son during the work day. 2. would like to discuss nicotine cessation-She is using the nicotine pouches - a couple daily-She had quit using nicotine when - vaped prior to then started up post- with the pouches. Anisa Willis APRN [address] [place] [address], [phone], [facility] 09/12/2024 00:27:54 10/09/2024 text/html F/U on meds-brianna es H/I and S/I-We checked in on Richard on 09/25 via phone and she stated that the hallucinations were completely gone. She states today that the (mostly auditory) hallucinations have returned. She often hears voices telling her that things in her life are not real. Also has feelings that she is and that nothing that is happening to her is really happening. She DENIES hearing any voices that are telling her to harm herself or her baby. She does not feel either of them are in an eminent danger.-Gets about 7-8 hours of sleep at night-She is calling into work a lot due to anxiety she experiences at work and is wondering about FMLA until she is feeling less anxiety-She stresses that her depression HAS improved with the increased venlafaxine dose. She feels her mood is much better. [email or web address] Anisa Willis, YANIRA [address] [place] [address], [phone], [facility] 10/10/2024 13:08:24 10/14/2024 text/html patient is here today for a sick visit. sx started about a week ago that include: runny nose, throat irritation, itchy eyes, fatigued, and no fever noted at home on herself.-overall feeling better. Flower Barroso, YANIRA, MEDIA SERVICES COORDINATOR [address] [place] [address], [phone], [facility] 10/14/2024 17:50:58 11/06/2024 text/html 1. Sick-sore thr oat, cough, congestion and fatigue - started 2 days ago-Sore throat worse in am and then goes away as the day goes on and no sore throat to speak of currently-symptoms started 2 days ago-No cough-temp 99.7 at home - No tylenol/ibuprofen today-not taking any OTC medication-Eating and drinking ok 2. f/u depression/anxiety- Pt report improvement overall - especially with hallucinations. NO further visible hallucinations. 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 She no longer dreads going to work and does not get anxious while she is there. Anisa Willis APRN [address] [place] [address], [phone], [facility] 11/06/2024 23:09:07 OBGyn Episode Ob Episode Information Episode Created Date Number of Fetuses Patient Bloodtype Patient rh Status Prepregnancy Weight lbs Domestic Partner Domestic Partner Phone Father Name Quality Assurance Tech Status 01/26/20 24 1 CLOSED Fetus Data First Name Last Name Admitted to NICU Weight (g) Sex Living Outcome Pediatric Complications Fetus ID Race Codes Race Delivery Type , Spontane ous [id number] Aborted - Spontaneo us Bam Calculation Initial Bam Date Initial Exam Date Initial Exam Provider Initial Ultrasound Date Last Menstrual Period Date Ultra Sound Weeks Gestation 0 Eighteen To Twenty Week Bam Update Ultra Sound Date Fundal Height At Umbil Quickening Date Ultra Sound Latest Weeks Gestation Final Bam Confirmed By Final Bam Confirmed Date Final Bam Date Ultra Sound Latest Days Gestation 0 0 Menstrual History Last Menstrual Date Menses Monthly On Bcp Conception Prior Menses Frequency Hcg Plus Date Menarche Onset Age Delivery Information Delivery Date Delivery Type Labor Anesthesia Weeks Gestation Incision Type Labor Labor Length Hrs Delivered By Post Complications Tubal Sterilization Discharge Date Comments 4 6 Discharge Information Feeding Method Contraceptive Method Maternal HG B and HCT Levels Ob Episode Information Episode Created Date Number of Fetuses Patient Bloodtype Patient rh Status Prepregnancy Weight lbs Domestic Partner Domestic Partner Phone Father Name Quality Assurance Tech Status 01/26/20 24 1 A Positive 117 (prior PCP at [facility], but insurance changes) CLOSED Fetus Data First Name Last Name Admitted to NICU Weight (g) Sex Living Outcome Pediatric Complications Fetus ID Race Codes Race Delivery Type Maurice Cummins all false 3061.74 6 M true Full Term 8888 (Normal Spontaneo us Vaginal Delivery) Problems Problem Notes Labs from prior PCP (Dr. Chavez at [facility])- Blood Type listed at one point as A+ but another part of flowsheet lists Rh Type as Non reactive - Antibody Neg, Hb 12.8, Rub Imm, HepB Neg, HIV Neg, RPR Neg- GC/CT Neg, HepC Non-reactive, UrineDrugScreen Positive Cotinine (c/w nicotine smoker)- [id number] Negative (Male) [x] desires circumcision - discussed nature / risk / benefits Problem Name Start Date End Date Resolution Snomed Code Not e Depressive disorder [id number] Controlled w/ Fluvoxamine and Seroquel coming into (and continued in) Marijuana user [id number] every other day Blood group A [id number] prior provider flowsheet not clear on Rh Status. A+ confirmed on 32wk labs. Abnormality of heart 01/30/2024 [id number] Appearance of bidirectional flow in aorta on tracheal view. Normal on MFM eval at 33w where advised ok to deliver locally ([facility]), but suggested post- echo non-urgently. Group B Streptococcus carrier [id number] +screen at 36w . Plan for intrapartum antibiotics. Bam Calculation Initial Abm Date Initial Exam Date Initial Exam Provider Initial Ultrasound Date Last Menstrual Period Date Ultra Sound Weeks Gestation 06/11/2024 01/26/2024 11/01/2023 05/31/2023 8 Eighteen To Twenty Week Bam Update Ultra Sound Date Fundal Height At Umbil Quickening Date Ultra Sound Latest Weeks Gestation Final Bam Confirmed By Final Bam Confirmed Date Final Bam Date Ultra Sound Latest Days Gestation 0 [email or web address] 01/26/2024 06/11/20 24 0 Pre-diogenes Flowsheet Flowsheet Date 01/26/2024 Freeman Score Blood Edema Fundus Height Fundus Units Glucose Ketones Leukocytes Nitrite Labor Signs Protein Cervic Dilation Cervic Effacement Cervic Station Type Weight in lbs Pre/Post Dialysis Refused Weight 122.259141106217 BP Diastolic BP Location Tested BP Systolic BP Type 52 118 Fetus Heart Rate Present A 145 Fetus Movement A Yes Comments Has not had 20 week US yet. We will schedule that. Fell down stairs Monday, [facility] on MondayReports low lying placenta there (and her sister had placental calcification?). - i advised pelvic rest until we can confirm placenta location. to f/u in 4wks. Flowsheet Date 02/26/2024 Freeman Score Blood Edema Fundus Height Fundus Units Glucose Ketones Leukocytes Nitrite Labor Signs Protein Cervic Dilation Cervic Effacement Cervic Station none 25 cm none Type Weight in lbs Pre/Post Dialysis Refused 131.536311935852 BP Diastolic BP Location Tested BP Systolic BP Type 68 L arm 104 sitting Fetus Heart Rate Present A 148 Present Fetus Movement A Increased Comments 1) needing a work note for t gerson and a note stating needs a break after 4hours of work.2) note/ discussed nmL placenta location. 3) discussed need for repeat US w/ MFM for aortic arch eval.4) 1hr GTT instrxns given. To be done at [facility]5) discussed circumcision, and she would like to have that done, yes (discussed nature / risk / benefits) Flowsheet Date 03/29/2024 Freeman Score Blood Edema Fundus Height Fundus Units Glucose Ketones Leukocytes Nitrite Labor Signs Protein Cervic Dilation Cervic Effacement Cervic Station 29 cm Type Weight in lbs Pre/Post Dialysis Refused 138.008111471548 BP Diastolic BP Location Tested BP Systolic BP Type 68 100 Fetus Heart Rate Present A 150 Fetus Movement A Yes Comments doing well overall. Flowsheet Date 04/17/2024 Freeman Score Blood Edema Fundus Height Fundus Units Glucose Ketones Leukocytes Nitrite Labor Signs Protein Cervic Dilation Cervic Effacement Cervic Station 32 cm none neg Type Weight in lbs Pre/Post Dialysis Refused 139.871156560699 BP Diastolic BP Location Tested BP Systolic BP Type 70 110 Fetus Heart Rate Present A 148 Fetus Movement A Yes Comments 1) CBC, RPR, HIV, and ABO/Rh ordered / drawn today2) Info given to patient on flu, Tdap (and RSV) vaccine - [facility])3) Painful contractions on 04/14/24. Would occur of 30 minutes, stop, and then return for another 30 minutes- Vomiting x1 last night while having strong contractions- Pt is having some contractions today as well- will Rx PRN nifedipine (discused nature / risks) to [facility] pharmacy. Flowsheet Date 04/26/2024 Freeman Score Blood Edema Fundus Height Fundus Units Glucose Ketones Leukocytes Nitrite Labor Signs Protein Cervic Dilation Cervic Effacement Cervic Station Type Weight in lbs Pre/Post Dialysis Refused BP Diastolic BP Location Tested BP Systolic BP Type Fetus Heart Rate Present Fetus Movement Comments CHART UPDATE:- visit with SAMMY Judge on 04/24/24 (33w1d) where US c/w nmL growth (62%ile), Fluid, and heart views. EMERY then advised ok to deliver locally ([facility]), but suggested post- echo non-urgently. Flowsheet Date 04/29/2024 Freeman Score Blood Edema Fundus Height Fundus Units Glucose Ketones Leukocytes Nitrite Labor Signs Protein Cervic Dilation Cervic Effacement Cervic Station none 34 cm none none neg Type Weight in lbs Pre/Post Dialysis Refused 140.253657108548 BP Diastolic BP Location Tested BP Systolic BP Type 68 110 Fetus Heart Rate Present A 148 Fetus Movement A Yes Comments 1) complaints of sharp/shoot ing pains in vagina- empathized w/ discomfort, but reassuring for NOT s/o PTL sign2) discussed GBS screening. Plan to collect next visit. Flowsheet Date 05/13/2024 Freeman Score Blood Edema Fundus Height Fundus Units Glucose Ketones Leukocytes Nitrite Labor Signs Protein Cervic Dilation Cervic Effacement Cervic Station trace 35.5 cm none Uterine Contract ions neg Type Weight in lbs Pre/Post Dialysis Refused 144.056247308812 BP Diastolic BP Location Tested BP Systolic BP Type 60 120 Fetus Heart Rate Present A 160 Fetus Movement A Yes Comments Went to [facility] l ast night (as it was the closest at the time) for possible leakage and some contractions. SROM test was negative, and cervix was NOT dilated. Some contractions ongoing today, but similar or less than last night and not painful. - did try PO nifedipine which helped for 20-30min (I invited her to try that again after she gets home tonight). GBS collected todayFHT's 160s here, though baby is VERY active during my attempt at doppler for about 3minutes. Will have her go to L&D at [facility] now for monitoring (NST) to r/o persisting tachycardia Flowsheet Date 05/16/2024 Freeman Score Blood Edema Fundus Height Fundus Units Glucose Ketones Leukocytes Nitrite Labor Signs Protein Cervic Dilation Cervic Effacement Cervic Station none neg Type Weight in lbs Pre/Post Dialysis Refused Weight 142.64588839495 BP Diastolic BP Location Tested BP Systolic BP Type 82 112 Fetus Heart Rate Present A 145 Fetus Movement A Yes Comments 1) Still having about 3 cont ractions per hour; taking nifedipine 2-3x per day which is helpful for a little while2) discussed GBS + result Flowsheet Date 05/20/2024 Freeman Score Blood Edema Fundus Height Fundus Units Glucose Ketones Leukocytes Nitrite Labor Signs Protein Cervic Dilation Cervic Effacement Cervic Station none 36 cm none neg Type Weight in lbs Pre/Post Dialysis Refused 143.19659995118 BP Diastolic BP Location Tested BP Systolic BP Type 66 122 Fetus Heart Rate Present A 140 Fetus Movement A Yes Comments 1) Painful ctx last night, t raysa not consistent- feels like she lost her mucous plug- she defers cervical check today, which is fine, and we will check next week. 2) Headache today this morning, but seems to have resolved now. - relieved with tylenol - Spotty vision with headache, but now resolved- no fevers- mild runny nose- nmL BP today is reassuring to make PreE quite unlikely. Covid and flu testing deferred given real paucity of symtoms and afebrile today. Menstrual History Last Menstrual Date Menses Monthly On Bcp Conception Prior Menses Frequency Hcg Plus Date Menarche Onset Age 1105/31/2023 true false 05/31/2023 28 10/15/19 2 4 15 Genetic Screening And Infection History Question Response Note Patient's Age Will Be 35 Yea rs Or Older At Estimated Date of Delivery false Thalassemia (Thai, Ecuadorean, Mediterranean, Or Background): MCV < 80 false Neural Tube Defect (Meningom yelocele, Spina Bifida, Or Anencephaly) false Congenital Heart Defect false Down Syndrome false Mor-Sachs (eg, Lutheran, Cajun, British-Dominican) f alse Sophia Disease false Sickle Cell Disease Or Trait () false Hemophilia Or Other Blood Disorders false Muscular Dystrophy false Cystic Fibrosis true mothers 08/01 brot her Recurrent Loss, Or A Stillbirth true miscarriage at 07/2023 Medications (including Suppl ements, Vitamins, Herbs, OTC Drugs), Illicit/Recreational Drugs, Alcohol true see me d list, marijuana Any Other Genetic History true Live With Someone With TB Or Exposed To TB false Patient Or Partner Has History Of Genital Herpes false Rash Or Viral Illness Since Last Menstrual Perio d false History Of STD, Gonorrhea, Chlamydia, HPV, Syphi lis true HPV Other Infection History false Prior GBS-infected child false History of HIV false History of Hepatitis false Hemoglobinopathy Or Carrier false Other Structural Defect false Recent Travel History Outside of Country false Developmental Delay false Autism false Plans and Education First Trimester Discussed Date Discussion Item Discussion Note Discuss ed By 01/26/2024 Avoidance of saunas or hot tubs [email or web address] 01/26/2024 Screening for aneuploidy bca dy4 01/26/2024 HIV and other routine tests [email or web address] 01/26/2024 Weight gain counseling bcady 4 01/26/2024 Environmental/work hazards b [email or web address] 01/26/2024 Illicit/recreational drugs b cady4 01/26/2024 Indications for ultrasonography [email or web address] 01/26/2024 Travel [email or web address] 01/26/2024 Tobacco/smoking cess ation counseling (ask, advise, assess, assist, and arrange) [email or web address] 01/26/2024 bcady4 01/26/2024 Use of any medicatio ns (including supplements, vitamins, herbs, or OTC drugs) [email or web address] 01/26/2024 Seat belt use [email or web address] 01/26/2024 Risk factors identif ied by history [email or web address] 01/26/2024 Anticipated course of care [email or web address] 01/26/2024 Sexual activity [email or web address] 01/26/2024 Dental care [email or web address] 01/26/2024 Nutrition counseling ; special diet; dietary precautions (mercury, listeriosis) bcady4 01/26/2024 Toxoplasmosis precautions (cats/raw meat) bcady4 01/26/2024 Exercise [email or web address] 01/26/2024 Teratogens bcady4 01/26/2024 Alcohol bcady 01/26/2024 Childbirth classes/hospital facilities [email or web address] Second Trimester Discussed Date Discussion Item Discussion Note Discuss ed By 03/29/2024 Signs and symptoms of labor bcady 04/17/20[address] a care provider [facility] 04/29/[facility]24 Tobacco/smoking cess ation counseling (ask, advise, assess, assist, and arrange) [facility] 03/29/2024 Depression screening (when indicated) [email or web address] Third Trimester Discussed Date Discussion Item Discussion Note Discuss ed By 04/29/2024 Tobacco/smoking cess ation counseling (ask, advise, assess, assist, and arrange) [facility] Delivery Information Delivery Date Delivery Type Labor Anesthesia Weeks Gestation Incision Type Labor Labor Length Hrs Delivered By Post Complications Tubal Sterilization Discharge Date Comments Sponta neous Regional-Ep idural 37.4 false Ammon Emery MD false 05/27/2024 Discharge Information Feeding Method Contraceptive Method Maternal HG B and HCT Levels Breast 10.4
[2024-11-21 09:24] LABS: Strep Group A RT-PCR NOT DETECTED (Negative)
[2024-11-21 09:29] LABS: Influenza A QL RT-PCR Negative (Negative); Influenza B QL RT-PCR Negative (Negative); RSV RNA, RT-PCR Negative (Negative); SARS-CoV-2 RNA PCR Negative (Negative)
--- NOTE | 2024-11-21 09:30 | ED.FEMALEGU ---
HPI - Female Genitourinary General Chief complaint: Urogenital-Female Stated complaint: left flank pain Time Seen by Provider: 11/21/24 08:08 Source: patient Mode of arrival: ambulatory Limitations: no limitations History of Present Illness HPI Narrative: this is a 29-year-old female who presents with cough and sore throat and complaining of left lower rib tenderness with no dysuria no fever chills no hematuria no nausea vomiting. Related Data Allergies Allergy/AdvReac Type Severity Reaction Status Date / Time erythromycin base Allergy Mild Rash Verified 11/21/24 08:13 Review of Systems Review of Systems: All systems reviewed & are unremarkable except as noted in HPI and below PMFSH Past Medical History Medical History Patient denies medical problems Exam Const: General: healthy appearing and no acute distress Nutritional Appearance: well nourished Orientation/consciousness: patient oriented x3 Limitations: no limitations Eyes: Conjunctivae: conjunctivae normal Neck: Neck: normal visual inspection and no lymphadenopathy Chest: Chest palpation & inspection: normal inspection of the chest Resp: Effort & Inspection: normal respiratory effort Auscultation: clear to auscultation bilaterally Cardio: Rate: regular rate Rhythm: regular rhythm GI: GI Palp: Yes Soft to palpation Auscultation: normal bowel sounds : General: Yes bladder normal to palpation Urinary Catheter: Urinary Catheter: patent and draining Back/Spine/Pelvis: Back: no CVA tenderness Skin: General skin exam: normal color Rashes: no rashes Neuro: General: patient oriented x3 Course Course Emergency Course: per patient received amoxicillin for red erythematous throat and UA and a urine test strep COVID RSV influenza are negative. Vital Signs Vital signs: Vital Signs Temperature 37.3 C 11/21/24 08:05 Pulse Rate 104 H 11/21/24 08:05 Respiratory Rate 18 11/21/24 08:05 Blood Pressure 132/83 11/21/24 08:05 Pulse Oximetry 98 11/21/24 08:05 Oxygen Delivery Room Air 11/21/24 08:05 Temperature 37.3 C 11/21/24 08:05 Pulse Rate 104 H 11/21/24 08:05 Respiratory Rate 18 11/21/24 08:05 Blood Pressure 132/83 11/21/24 08:05 Pulse Oximetry 98 11/21/24 08:05 Oxygen Delivery Room Air 11/21/24 08:05 MDM - Female Genitourinary Lab Data Labs: Lab Results 11/21/24 11/21/24 11/21/24 Range/Units 08:10 08:35 08:40 Urine Color Yellow (Yellow) Urine Appearance Clear (Clear) Urine pH 6.5 (5.0-8.0) Ur Specific [place] 1.020 (1.010-1.020) Urine Protein Negative (Negative) Urine Glucose (UA) Negative (Negative) Urine Ketones Negative (Negative) Ur Blood (Man) Negative (Negative) Urine Nitrate Negative (Negative) Urine Bilirubin Negative (Negative) Urine Urobilinogen 0.2 (0.2-1.0) mg/dL Leukocyte Esterase Rfl Negative (Negative) CHARLIE/UL Urine Test Negative Influenza A (RT-PCR) Negative (Negative) Influenza B (RT-PCR) Negative (Negative) RSV (RT-PCR) Negative (Negative) SARS-CoV-2 RNA (RT-PCR) Negative (Negative) Group A Strep (PCR) Not detected (Negative) Critical Care Time Critical Care Time Critical Care Time: No Discharge Plan Discharge Clinical Impression: Pharyngitis Qualifiers: Pharyngitis/tonsillitis etiology: unspecified etiology Qualified Code(s): J02.9 - Acute pharyngitis, unspecified Patient Disposition: Home Condition: Stable Instructions: Antibiotic Form, Pharyngitis (ED) Additional Instructions: advised to take medication as prescribed and follow-up with primary care physician if symptoms persist or worsen. Patient Language: Syriac Prescriptions: New amoxicillin 500 mg capsule 500 mg PO Q12H Qty: 20 0RF Follow-up/Referrals: DIANE OJEDA [Other] Time of Disposition: 09:35
[2024-11-21] MEDS: AMOXICILLIN 500 MG CAPSULE PO (09:40)
[2024-11-21 09:56] VITALS: BP 118/74; PULSE 64; RESP 16; TEMP 36.6; O2SAT 98
== END 2024-11-21 09:56 | disposition home or self-care (01) ==
PROVIDERS: Emergency Provider Emergency Medicine
DX: J02.9 Acute pharyngitis, unspecified (principal); Z20.822 Contact with and (suspected) exposure to COVID-19
CPT/HCPCS: 81003; 81025; 87637; 87651; 99283; A9270